=== PATIENT | female | born 1935 | race African-American/Black ===

== ENCOUNTER → 2019-01-10 | Outpatient (CLI) | payer MEDICARE ==
--- NOTE | 2019-01-10 17:06 | Diagnostic Imaging Report ---
Radiographs of the skull - 4 views HISTORY: History of mass right parietal. COMPARISON: None available. FINDINGS: Bones: No acute displaced fracture. Osseous alignment is within normal limits. 1.4 cm suspected bony exostosis at the superior-lateral right parietal bone. No aggressive features are seen. Joints: The joint spaces are well-maintained. Soft tissues: The soft tissues appear unremarkable. IMPRESSION: 1.4 cm suspected bony exostosis at the superior-lateral right parietal bone. No aggressive features are seen. If indicated CT scan may be of benefit. Signed by: Dr. Marvin Witt M.D. on 01/10/2019 5:03 PM
== END ==
LOC: RAD 14:25
PROVIDERS: ATTEND Plastic Surgery
DX: M89.9 Disorder of bone, unspecified (principal); R22.0 Localized swelling, mass and lump, head
CPT/HCPCS: 70260

== ENCOUNTER → 2019-01-19 | Outpatient (CLI) | payer MEDICARE ==
[~2019-01-19] MED LIST: IOPAMIDOL 370 MG/ML 200 ML INFUS..BTL INJ ONE; SODIUM CHLORIDE 0.9% 50ML 50 ML ONE
[2019-01-19 09:48] LABS: BLOOD UREA NITROGEN 22 mg/dL (7-26); BUN/CREATININE RATIO 22 (6-25); CREATININE, SERUM 0.99 mg/dL (0.57-1.11); EST GLOMERULAR FILTRATION RATE > 60 ML/MIN (60-)
--- NOTE | 2019-01-19 18:23 | Diagnostic Imaging Report ---
History: Lump on top of the head Comparison studies: X-ray of the skull 01/10/2019 Technique: Axial images were obtained from the skull base to the vertex. Coronal and sagittal reconstructions obtained from the axial data. Intravenous contrast: 100 cc of Omnipaque 300. Dose modulation, iterative reconstruction, and/or weight based adjustment of the mA/kV was utilized to reduce the radiation dose to as low as reasonably achievable. Findings: Scalp/skull: Again seen 1.4 cm broad-based exostosis arising from the outer table of the right parietal bone. No fractures, blastic or lytic lesions. Extra-axial spaces: No masses. No fluid collections. Brain sulci: Appropriate for age. Ventricles: Normal in size and configuration. No hydrocephalus. Parenchyma: Scattered hypodensities of the supratentorial white matter. 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 No enhancing abnormalities. No masses, hemorrhage, acute or chronic cortical vascular insults. Sellar/suprasellar region: No abnormalities Craniocervical junction: Patent foramen magnum. No Chiari one malformation. Incidental findings: Cataract surgery changes bilaterally. IMPRESSION: Small exostosis arising from the right parietal bone, no further follow-up recommended. No acute intracranial abnormality. 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 on 01/19/2019 6:20 PM
== END ==
LOC: CT 08:49
PROVIDERS: ATTEND Plastic Surgery
DX: R22.0 Localized swelling, mass and lump, head (principal)
CPT/HCPCS: 36415; 70460; 82565; 84520; Q9967